=== PATIENT | female | born 1955 | race Caucasian/White ===

== ENCOUNTER 2020-05-19 13:14 | Outpatient (CLI) | payer OTHER | END 2020-05-19 13:15 | disposition home or self-care (01) | LOC: COV 13:14 | PROVIDERS: ATTEND Family Medicine | DX: R05 Cough (principal); M79.10 Myalgia, unspecified site; J34.89 Other specified disorders of nose and nasal sinuses; Z20.828 Contact with and (suspected) exposure to other viral communicable diseases ==

== ENCOUNTER 2020-12-13 07:00 | Outpatient (CLI) | payer OTHER ==
--- NOTE | 2020-12-13 10:56 | XRAY Report ---
PROCEDURE: Knee 3 View RT INDICATIONS: RIGHT KNEE PAIN TECHNIQUE: 3 views of the right knee(s) were acquired. COMPARISON: None. FINDINGS: Bones: No fractures or dislocations. No suspicious bony lesions. There is moderate medial, patello femoral and lateral compartment narrowing. Periarticular osteophytes are present. No erosions. There is lateral subluxation of the patella. Soft tissues: Minimal joint effusion. No suspicious soft tissue calcifications. IMPRESSION: Tricompartmental arthritic change as above. Reviewed by: Anais Vee MD on 12/13/2020 10:55 AM PDT Approved by: Anais Vee MD on 12/13/2020 10:55 AM PDT Station ID: [id number]
== END 2020-12-13 23:59 | disposition home or self-care (01) ==
LOC: DI.S 07:00
PROVIDERS: ATTEND Physician Assistant
DX: M17.11 Unilateral primary osteoarthritis, right knee (principal)

== ENCOUNTER 2021-03-01 13:05 | Outpatient (CLI) | payer MEDICARE, OTHER ==
--- NOTE | 2021-03-01 15:18 | XRAY Report ---
PROCEDURE: Knee 4 View RT INDICATIONS: OSTEOARTHRITIS, RIGHT KNEE TECHNIQUE: 4 views of the right knee and one view of the left knee. COMPARISON: None. FINDINGS: Bones: No fractures or dislocations. No suspicious bony lesions. There is moderate tricompartment periarticular osteophyte formation. There is severe right knee lateral compartment narrowing. Soft tissues: No joint effusion. Chondrocalcinosis within the left knee lateral compartment. IMPRESSION: 1. Osteoarthritis 2. Lateral compartment narrowing involving the right knee. 3. Left knee chondrocalcinosis. Reviewed by: Kavon Sims MD on 03/01/2021 3:16 PM PDT Approved by: Kavon Sims MD on 03/01/2021 3:16 PM PDT Station ID: [id number]
== END 2021-03-01 23:59 | disposition home or self-care (01) ==
LOC: DI.N 13:05
PROVIDERS: ATTEND Orthopaedic Surgery
DX: M17.11 Unilateral primary osteoarthritis, right knee (principal); M11.262 Other chondrocalcinosis, left knee

== ENCOUNTER 2021-03-22 14:54 | Outpatient (CLI) | payer OTHER ==
--- NOTE | 2021-03-23 13:24 | Mammography Report ---
BILATERAL DIGITAL SCREENING MAMMOGRAM 3D/2D: 03/22/2021 CLINICAL: Routine screening. Comparison is made to exams dated: 11/23/2015 mammogram and 12/07/2008 mammogram - [facility]. There are scattered fibroglandular elements in both breasts. No significant masses, calcifications, or other findings are seen in either breast. There has been no significant interval change. IMPRESSION: NEGATIVE There is no mammographic evidence of malignancy. A 1 year screening mammogram is recommended. This exam was interpreted at Station ID: [id number]. NOTE: For mammograms, a report in lay terms will be sent to the patient. Approximately 15% of breast malignancies will not be visualized mammographically. In the management of a palpable breast mass, a negative mammogram must not discourage biopsy of a clinically suspicious lesion. Electronically Signed By: Julio Aldana M.D. ar/penrad:03/22/2021 16:09:00 ACR BI-RADS Category 1: Negative [id number] PARENCHYMAL PATTERN: (A) - The breast(s) demonstrate(s) scattered fibroglandular densities. BI-RADS CATEGORY: (1) - 1 RECOMMENDATION: (ANNUAL) - Recommend routine annual screening mammography. [id number] 1 year screening LATERALITY: (B)
== END 2021-03-22 14:55 | disposition home or self-care (01) ==
LOC: DI.S 14:54
PROVIDERS: ATTEND Registered Nurse
DX: Z12.31 Encounter for screening mammogram for malignant neoplasm of breast (principal)

== ENCOUNTER 2021-04-14 08:05 | Outpatient (CLI) | payer OTHER ==
[2021-04-14 14:34] LABS: PARTIAL THROMBOPLASTIN TIME 31.9 secs (24.9-33.3)
[2021-04-14 14:37] LABS: BASOPHILS % (AUTO) 0.7 %; EOSINOPHILS # (AUTO) 0.1 10^3/uL (0.0-0.7); EOSINOPHILS % (AUTO) 3.4 %; HCT - HEMATOCRIT 39.4 % (37.0-47.0); HGB - HEMOGLOBIN 12.7 g/dL (12.0-16.0); LYMPHOCYTES # (AUTO) 0.7 10^3/uL (1.5-3.5); LYMPHOCYTES % (AUTO) 21.9 %; MEAN CORPUSCULAR HEMOGLOBIN 28.8 pg (27.0-31.0); MEAN CORPUSCULAR HGB CONC 32.2 g/dL (32.0-36.0); MEAN CORPUSCULAR VOLUME 89.3 fL (81.0-99.0); MONOCYTES # (AUTO) 0.3 10^3/uL (0.0-1.0); MONOCYTES % (AUTO) 9.4 %; NEUTROPHILS # (AUTO) 1.9 10^3/uL (1.5-6.6); NEUTROPHILS % (AUTO) 64.6 %; PLT - PLATELET COUNT 202 10^3/uL (130-450); RED BLOOD COUNT 4.41 10^6/uL (4.20-5.40); RED CELL DISTRIBUTION WIDTH 14.2 % (12.0-15.0)
[2021-04-14 14:47] LABS: PT - PROTHROMBIN TIME 11.6 secs (9.9-12.6)
[2021-04-14 15:30] LABS: THYROID STIMULATING HORMONE 3.42 uIU/mL (0.34-5.60)
[2021-04-14 15:34] LABS: ALBUMIN 4.2 g/dL (3.2-5.5); ALBUMIN/GLOBULIN RATIO 1.7 (1.0-2.2); ALKALINE PHOSPHATASE 61 IU/L (42-121); ALT ALANINE AMINOTRANSFERASE 15 IU/L (10-60); AST ASPARTATE AMINOTRANSFERASE 13 IU/L (10-42); BILIRUBIN,TOTAL 0.5 mg/dL (0.2-1.0); BUN - BLOOD UREA NITROGEN 19 mg/dL (6-20); CARBON DIOXIDE - CO2 27 mmol/L (21-32); CHLORIDE 105 mmol/L (101-111); CHOL/HDL RATIO 2.7 (<4.4); CHOLESTEROL 231 mg/dL; CREATININE 0.6 mg/dL (0.4-1.0); GFR - MDRD 100 (>89); GLUCOSE 103 mg/dL (70-100); HDL CHOLESTEROL 85 mg/dL; LDL CHOLESTEROL,CALCULATED 138 mg/dL; LDL/HDL RATIO 1.6 (<4.4); SODIUM 139 mmol/L (135-145); TOTAL PROTEIN 6.7 g/dL (6.7-8.2); TRIGLYCERIDES 42 mg/dL; VLDL CHOLESTEROL 8 mg/dL
== END 2021-04-14 08:06 | disposition home or self-care (01) ==
LOC: LAB.S 08:05
PROVIDERS: ATTEND Physician Assistant
DX: Z00.00 Encounter for general adult medical examination without abnormal findings (principal); I10 Essential (primary) hypertension; Z79.899 Other long term (current) drug therapy
CPT/HCPCS: 36415; 80053; 80061; 83721; 84443; 85025; 85610; 85730

== ENCOUNTER 2021-05-04 06:23 | Day surgery (SDC) | payer OTHER, MEDICARE ==
[~2021-05-04 06:23] MED LIST: ACETAMINOPHEN 500 MG TABLET PO ONE; CELECOXIB 100 MG CAPSULE PO ONE; DEXAMETHASONE 10 MG/ML VIAL ONE; ceFAZolin 2 GM/50 ML 2 GM/50 ML BAG IV ONE
[2021-05-04] MEDS ORDERED: LACTATED RINGERS 1,000 ML IV ONE ×2 (06:39→10:46)
[2021-05-04] MEDS ORDERED: fentaNYL 100 MCG/2 ML VIAL ONE ×2 (06:52→09:40)
[2021-05-04] MEDS ORDERED: MIDAZOLAM 2 MG/2 ML VIAL ONE ×2 (06:52)
[2021-05-04] MEDS ORDERED: PROPOFOL 1000 MG/100 ML 1,000 MG/100 ML BOTTLE IV ONE (06:53)
[2021-05-04] MEDS ORDERED: LIDOCAINE-MPF 2% 5 ML VIAL ONE (06:53)
--- NOTE | 2021-05-04 07:04 | ANESTHESIA ---
Pre-Anesthesia VS, & Labs - Diagnosis R Knee OA - Procedure R TKA Vital Signs: Temp Pulse Resp BP Pulse Ox 36.4 C L 75 16 157/94 H 100 05/04/21 06:39 05/04/21 06:39 05/04/21 06:39 05/04/21 06:39 05/04/21 06:39 Height: 5 ft 5 in Weight (kg): 106.2 kg Body Mass Index: 38.9 BMI Classification: Obese - NPO >8 hours - Is Patient ?: No Home Medications and Allergies Home Medications: Ambulatory Orders Ascorbic Acid [Vitamin C] 1,000 mg PO DAILY 04/26/21 Cholecalciferol [Vitamin D3] 5,000 unit PO DAILY 04/26/21 Cyanocobalamin (Vitamin B-12) [Vitamin B-12] 3,000 mcg PO DAILY 04/26/21 Ibuprofen [Motrin] 600 mg PO Q6H PRN 04/26/21 Losartan Potassium 25 mg PO DAILY 04/26/21 Ascorbic Acid [Vitamin C] 1,000 mg PO DAILY 04/26/21 Cholecalciferol [Vitamin D3] 5,000 unit PO DAILY 04/26/21 Cyanocobalamin (Vitamin B-12) [Vitamin B-12] 3,000 mcg PO DAILY 04/26/21 Ibuprofen [Motrin] 600 mg PO Q6H PRN 04/26/21 Losartan Potassium 25 mg PO DAILY 04/26/21 Allergies/Adverse Reactions: Allergies Allergy/AdvReac Type Severity Reaction Status Date / Time codeine AdvReac Nausea Verified 04/26/21 12:44 Anes History & Medical History - Anesthetic History Anesthesia Complications: reports: No previous complications Family history of Anesthesia Complications: Denies Family history of Malignant Hyperthermia: Denies - Medical History Cardiovascular: reports: Hypertension, High cholesterol Pulmonary: reports: None Gastrointestinal: reports: None Urinary: reports: None Musculoskeletal: reports: Osteoarthritis Endocrine/Autoimmune: reports: None Skin: reports: Rosacea - Surgical History Gynecologic: reports: Oophrectomy Exam General: Alert, Oriented x3, Cooperative Dental: WNL Mouth Openin Fingerbreadth Neck Mobility: Normal Mallampati classification: II Thyromental Distance: 4-6 cm Respiratory: Lungs clear Cardiovascular: Regular rate Plan Anesthesia Type: General (GETA as back up, SAB primary, ACB for post-op pain), Spinal, Adductor Block Regional Block: Per Surgeon's request for Post Op pain control Consent for Procedure(s) Verified and Reviewed: Yes Code Status: Attempt Resuscitation ASA classification: 2-Mild systemic disease Is this case an emergency?: No
[2021-05-04] MEDS ORDERED: HYDROmorphone 0.5 MG/0.5 ML SYRINGE IVP PRN (07:05)
[2021-05-04] MEDS ORDERED: ePHEDrine 50 MG/ML VIAL IVP PRN (07:05)
[2021-05-04] MEDS ORDERED: NALOXONE 0.4 MG/ML VIAL IVP PRN (07:05)
[2021-05-04] MEDS ORDERED: ONDANSETRON 4 MG/2 ML VIAL IVP PRN (07:05)
[2021-05-04] MEDS ORDERED: fentaNYL 100 MCG/2 ML VIAL IVP PRN (07:05)
[2021-05-04] MEDS ORDERED: METOCLOPRAMIDE 10 MG/2 ML VIAL IVP PRN (07:05)
[2021-05-04] MEDS ORDERED: ATROPINE ABBOJECT 1 MG/10 ML SYRINGE IVP PRN (07:05)
[2021-05-04] MEDS ORDERED: MORPHINE 2 MG/ML CARPUJECT IVP PRN (07:05)
[2021-05-04] MEDS ORDERED: ROPIVACAINE 0.5% PF 20 ML AMPULE ONE (07:10)
[2021-05-04] MEDS ORDERED: BUPIVACAINE 0.5% PF 10 ML VIAL ONE (07:10)
[2021-05-04] MEDS ORDERED: SODIUM CHLORIDE FLUSH 0.9% 10 ML SYRINGE IVP PRN (07:13)
[2021-05-04] MEDS ORDERED: DOCUSATE SODIUM 100 MG CAPSULE PO PRN (07:13)
[2021-05-04] MEDS ORDERED: TRANEXAMIC ACID 1,000 MG/10 ML VIAL ONE ×2 (07:42→09:55)
[2021-05-04] MEDS ORDERED: LACTATED RINGERS 1,000 ML IV SCH (08:00)
[2021-05-04] MEDS ORDERED: BUPIVACAINE 0.25% PF 30 ML VIAL ONE (08:07)
[2021-05-04] MEDS ORDERED: VANCOMYCIN 1 GM VIAL ONE (08:07)
[2021-05-04] MEDS ORDERED: BUPIVACAINE 0.25% PF 30 ML VIAL SUBQ ONE (08:26)
[2021-05-04] MEDS ORDERED: VANCOMYCIN 1 GM VIAL MC ONE (08:46)
[2021-05-04] MEDS ORDERED: PHENYLEPHRINE 10 MG/ML VIAL ONE (08:56)
[2021-05-04] MEDS ORDERED: PROPOFOL 200 MG/20 ML VIAL IVP ONE ×2 (09:03→09:36)
--- NOTE | 2021-05-04 10:16 | OPERATIVE REPORT ---
Operative Report - General Procedure Date: 05/04/21 Planned Procedure: Right total knee replacement Pre-Op Diagnosis: Osteoarthritis right knee Procedure Performed: Right total knee replacement: [employer] journey 2 bicruciate stabilized knee: #5 femoral component, #4 tibial component, 26 mm biconvex patellar component, 11 mm tibial bearing, all components cemented Post Op Diagnosis: Same as preoperative diagnosis - Procedure Note Primary Surgeon: Ariel Paige MD Secondary Surgeon: Marv CERON, Jonn CERON Anesthesia Provider: Myles Lange CRNA Anesthesia Technique: Regional block, Spinal Estimated Blood Loss (mL): 200 Indications: This is a 65-year-old woman with symptomatic valgus osteoarthritis right knee, unable to achieve satisfactory pain relief and activity level with nonoperative treatment.She has valgus deformity with loss of articular cartilage to lateral compartment noted on radiographs and also to patellofemoral joint with osteophytes Findings: There is complete loss of articular cartilage to the lateral compartment and most of the patellofemoral joint, osteophytes off the medial compartment with partial articular cartilage loss. There is nonspecific synovitis. Cruciate ligaments and menisci were intact Complications: None - Other Other Information/Narrative: The patient was brought to the operating room and was placed in a supine position. She was given a adductor canal block by anesthesia. A pneumatic tourniquet was applied to the proximal right thigh over cast padding. This was a conical shaped Barbara thigh tourniquet that was sterile. An Rojas adjustable leg montero was placed on the operating room table to facilitate knee flexion of the right knee during surgery. A timeout procedure was performed by the entire operating room team and all were in agreement. A midline longitudinal incision was made with the knee in flexion. A medial parapatellar arthrotomy was made. The anterior horns of medial and lateral menisci were released and part of patellar fat pad was excised. The knee was flexed and the patella was dislocated laterally. A drill hole was made in the intramedullary notch with a 9.5 mm drill. Osteophytes about the proximal tibia and femur had been removed with a rongeur. The distal femoral cutting guide was aligned parallel to the posterior condyles. The intramedullary oscar and guide was advanced and the distal femoral guide was stabilized with half pins. The distal 5 degrees valgus cut was made through the distal femoral guide. Next the extra medullary tibial guide was assembled and applied and aligned to the mechanical axis in both sagittal and coronal planes. Tibial referencing was done to allow 3 mm of bone from the most affected side and 6 mm from the least affected side. The tibial guide was stabilized with half pins. Retractors were placed medially and laterally to protect the collateral ligaments and a retractor was placed directly against the posterior bone to sublux the tibia anteriorly. A [employer] precision 8 saw was used to make the tibial proximal cut. The tibial block was removed as a single piece and the menisci were removed as well. The extension gap was assessed with a extension block spacer using a 10 mm spacer and this was found to fit well as well as the 9 mm spacer block with the knee in 90 degrees of flexion. Next the femoral positioning guide was applied and aligned to the epicondylar axis and [place] line. This was secured in place with approximately 4 degrees of external rotation. The size of the femur at the anterior lateral trochlea was a #4. Drill holes were made in the 5 and 1 #4 cutting block was inserted and secured. The 5 cuts were made to the captured block using oscillating saw. The flexion gap was assessed with the 10 mm spacer and was found to fit well. The patella was then prepared. A 26 mm biconvex patellar reamer was used. The tibial trial #4 was then applied to the tibia and aligned to the mechanical axis.The notch was removed with reamer and box osteotome. The drill and punch fin was utilizedFor the proximal tibia. Trial reduction was performed with the femoral and tibial components in place. Notch resection was then through the trial component. Pulsatile lavage was performed. A tourniquet was applied during the cementing process. The components were inserted sequentially: Tibia, femur and lastly patellar component. Drill holes were made in medial lateral femoral condyles to the trial. Excess cement was removed and the knee was placed in extension during the hardening. Dilute Betadine irrigation was performed. The knee had full range of motion, good patellar tracking. There was good stability of the knee in full extension mid flexion and 90 degrees of flexion. There was good alignment of the right knee. The tourniquet had been deflated and had been in place for 38 minutes. Hemostasis was achieved with electrocautery. Vancomycin powder 2 g were inserted in the arthrotomy prior to deep closure. The deep closure was performed with #1 Ethibond proximal and distal to the patella with the knee in 30 degrees of flexion. #1 stratofix suture was then used to close the arthrotomy incision. 2-0 Stratofix was used to close the subcutaneous tissue. 3-0 Monocryl was used to do a subcuticular skin closure. Dermabond was applied to the skin incision. After the Dermabond had hardened, a silver impregnated dressing was applied. She tolerated the procedure well and received 2 g of Ancef intravenously and 2 g of tranexamic acid. A clinical physician assistant was utilized during the procedure and was found to be necessary component to help with exposure, protection of vital structures and closure. Second application assistant, Marv Walker PA-C also was available to provide retraction exposure.
[2021-05-04] MEDS ORDERED: ONDANSETRON 4 MG/2 ML VIAL ONE (10:55)
--- NOTE | 2021-05-04 11:26 | CONSULTATION NOTE ---
Referring Provider Name of Referring Provider:: Dr. Ariel Paige. Consult Date: 05/04/21 Chief Complaint - Chief Complaint Chief Complaint: Right knee pain History of Present Illness - Admitted From Admitted From:: Home - History Obtained From Records Reviewed: Yes History obtained from: Patient, Orthopedic Surgeon, EMR - History of Present Illness HPI Comment/Other: This is a 65-year-old female with a past medical history significant for hypertension and osteoarthritis who presents today for an elective right total knee arthroplasty for osteoarthritis that has failed conservative therapy. Medicine was consulted postoperatively to help assist with the patient's hypertension. The patient currently reports feeling well. She does complain of a burning sensation in her right knee but states her pain overall is controlled. She is able to move her toes and denies any loss of sensation. Reports no chest pain, dyspnea. She does feel thirsty at this time. We did discuss goals of care and she would like to be a full code. 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 Both of them are . Living arrangement: At home Social History Notes: She denies smoking and reports rare alcohol use. Meds/Allgy - Home Medications Home Medications: Ambulatory Orders Medication Instructions Recorded Confirmed Ascorbic Acid [Vitamin C] 1,000 mg PO DAILY 04/26/21 05/03/21 Cholecalciferol [Vitamin D3] 5,000 unit PO DAILY 04/26/21 05/03/21 Cyanocobalamin (Vitamin B-12) 3,000 mcg PO DAILY 04/26/21 05/03/21 [Vitamin B-12] Ibuprofen [Motrin] 600 mg PO Q6H PRN 04/26/21 05/03/21 Losartan Potassium 25 mg PO DAILY 04/26/21 05/04/21 - Allergies Allergies/Adverse Reactions: Allergies Allergy/AdvReac Type Severity Reaction Status Date / Time codeine AdvReac Nausea Verified 04/26/21 12:44 Review of Systems - Constitutional Constitutional: denies: Fever, Chills - Cardiovascular Cariovascular: denies: Chest pain, Exertional dyspnea, Decr. exercise tolerance - Respiratory Respiratory: denies: Cough, SOB at rest, SOB with exertion - Gastrointestinal Gastrointestinal: denies: Abdominal pain, Nausea, Vomiting - Musculoskeletal Musculoskeletal: reports: Stiffness, Limited range of motion, Joint pain - Neurological Neurological: denies: Focal weakness - All Other Systems All Other Systems: reports: Reviewed and negative Exam - Vital Signs Reviewed Vital Signs: Yes Vital Signs: Vital Signs x48h Temp Pulse Resp BP Pulse Ox 05/04/21 11:16 36.5 C 73 16 126/81 H 96 05/04/21 11:06 36.5 C 73 15 129/73 95 05/04/21 10:56 37.1 C 75 12 129/73 96 05/04/21 10:52 37.1 C 77 13 130/79 96 05/04/21 10:46 36.4 C L 82 14 119/74 100 05/04/21 10:38 36.4 C L 85 14 127/75 96 05/04/21 06:39 36.4 C L 75 16 157/94 H 100 - Physical Exam General Appearance: positive: No acute distress, Alert Eyes Bilateral: positive: Normal inspection, Conjunctivae nml ENT: positive: ENT inspection nml Neck: positive: Nml inspection Respiratory: positive: No respiratory distress. negative: Wheezes, Rales Cardiovascular: positive: Regular rate & rhythm. negative: Tachycardia Abdomen: positive: Non-tender, No distention. negative: Tenderness Skin: positive: Warm, Dry Extremities: positive: No pedal edema, Other (Dressing is in place over the right knee. Less than 2-second capillary refill in the right lower extremity. Sensation is intact. She is able to move her toes.) Neurologic/Psychiatric: negative: Disoriented to person, Disoriented to place Conclusion/Plan - Diagnosis Diagnosis: 1) Hypertension. 2) Status post right total knee replacement - Plan Plan: Her blood pressure is currently well controlled and we will continue her home losartan during this hospitalization. Agree with current pain regimen including Celebrex, Dilaudid, and oxycodone as needed. We will defer DVT prophylaxis to orthopedic surgery.
--- NOTE | 2021-05-04 11:39 | ANESTHESIA POST OP EVALUATION ---
Anesthesia Post Eval - Post Anesthesia Eval Vitals: Last Vital Signs Temp 36.3 C L 05/04/21 11:35 Pulse 72 05/04/21 11:35 Resp 16 05/04/21 11:35 BP 106/52 L 05/04/21 11:35 Pulse Ox 95 05/04/21 11:35 CV Function Including HR & BP: Stable Pain Control: Satisfactory Nausea & Vomiting: Negative Mental Status: Baseline Respiratory Status: Airway Patent Hydration Status: Satisfactory Anesthesia Complications: None
[2021-05-04] MEDS: HYDROmorphone 1 MG/ML CARPUJECT IVP PRN ×3 (12:30→17:02)
[2021-05-04] MEDS: NS W/20 MEQ KCL 1,000 ML IV SCH ×2 (12:33→21:00)
[2021-05-04] MEDS: ethyl alcohoL 62% SWAB AMPULE NAS SCH ×2 (12:34→20:55)
[2021-05-04] MEDS: ASPIRIN EC 81 MG TABLET PO SCH ×2 (12:34→20:55)
[2021-05-04] MEDS: CELECOXIB 100 MG CAPSULE PO SCH ×2 (12:34→20:55)
[2021-05-04] MEDS: ACETAMINOPHEN 500 MG TABLET PO SCH ×2 (12:35→17:01)
[2021-05-04] MEDS: SODIUM CHLORIDE FLUSH 0.9% 10 ML SYRINGE IVP SCH ×2 (12:35→16:43)
--- NOTE | 2021-05-04 12:47 | XRAY Report ---
PROCEDURE: Knee 2 View RT INDICATIONS: POST-OP TECHNIQUE: 2 views of the right knee(s) were acquired. COMPARISON: None. FINDINGS: Expected postoperative appearance of right knee arthroplasty. Hardware appears intact. There is expec jagjit alignment. Postsurgical soft tissue sequela. IMPRESSION: Expected postoperative appearance Reviewed by: Octaviano Hammond MD on 05/04/2021 12:46 PM PDT Approved by: Octaviano Hammond MD on 05/04/2021 12:46 PM PDT Station ID: [id number]
[2021-05-04] MEDS: oxyCODONE 5 MG TABLET PO PRN ×2 (13:38→20:55)
[2021-05-04] MEDS: ceFAZolin 2 GM/50 ML 2 GM/50 ML BAG IV SCH ×2 (13:39→21:06)
[2021-05-04] MEDS: ONDANSETRON 4 MG/2 ML VIAL IVP PRN ×2 (13:39→19:26)
[2021-05-05] MEDS: ACETAMINOPHEN 500 MG TABLET PO SCH ×3 (01:14→14:25)
[2021-05-05] MEDS: oxyCODONE 5 MG TABLET PO PRN ×2 (03:07→08:45)
[2021-05-05] MEDS: SODIUM CHLORIDE FLUSH 0.9% 10 ML SYRINGE IVP SCH ×2 (03:08→08:46)
[2021-05-05] MEDS: NS W/20 MEQ KCL 1,000 ML IV SCH (07:47)
--- NOTE | 2021-05-05 07:57 | PROVIDER PROGRESS NOTE ---
Subjective - General Procedure Date: 05/04/21 Post Op Days: 1 Procedure Performed: Right TKA - Review of Systems Wound/Incisions: positive: Dressing dry and intact General: negative: Fever, Chills Gastrointestinal: negative: Nausea (Patient is a 65-year-old female with a history of essential hypertension and high BMI who is postop day 1 right TKA) Musculoskeletal: positive: Joint pain Psychiatric: positive: No symptoms All Other Systems: positive: Reviewed and negative Objective - Patient Data Reviewed Vital Signs: Yes Vital Signs: Vital Signs x48h Temp Pulse Resp BP Pulse Ox 05/05/21 00:51 36.7 C 70 18 113/51 L 96 Weight: Weight 05/03/21 05/04/21 05/05/21 23:59 23:59 23:59 Weight (kg) 105.554 kg Intake & Output: Intake and Output Totals x24h 05/03/21 05/04/21 05/05/21 23:59 23:59 23:59 Intake Total 1495 1000 Output Total 1105 1200 Balance 390 -200 - Imaging Results Radiology Imaging: positive: EMP read indepedently (Expected postop changes for right TKA with no apparent hardware loosening and good anatomical alignment no fractures dislocations or other osseous abnormalities noted.) - Current Medications Current Medications: Current Medications Generic Name Dose Route Start Last Admin Trade Name Freq PRN Reason Stop Dose Admin Acetaminophen 1,000 mg 05/04/21 12:00 05/05/21 07:04 Acetaminophen 500 Mg Tablet PO 1,000 mg Q6HR SAWYER Administration Alcohol 1 amp 05/04/21 09:00 05/04/21 20:55 Ethyl Alcohol 62% Swab Ampule FRANKI 1 amp BID SAWYER Administration Aspirin 81 mg 05/04/21 09:00 05/04/21 20:55 Aspirin Ec 81 Mg Tablet PO 81 mg BID SAWYER Administration Celecoxib 200 mg 05/04/21 09:00 05/04/21 20:55 Celecoxib 100 Mg Capsule PO 200 mg BID SAWYER Administration Docusate Sodium 100 mg 05/04/21 07:13 05/04/21 20:56 Docusate Sodium 100 Mg Capsule PO 100 mg BID PRN Administration Constipation Hydromorphone HCl 1 mg 05/04/21 07:13 05/04/21 17:02 Hydromorphone 1 Mg/Ml Carpuject IVP 1 mg Q2HR PRN Administration Breakthrough Pain Potassium Chloride/Sodium Chloride 1,000 mls @ 100 mls/hr 05/04/21 08:00 05/05/21 07:47 Normal Saline 0.9% W/20 Meq Kcl IV 100 mls/hr .Q10H SAWYER Administration Ondansetron HCl 4 mg 05/04/21 07:13 05/04/21 19:26 Ondansetron 4 Mg/2 Ml Vial IVP 4 mg Q6HR PRN Administration Nausea / Vomiting Oxycodone HCl 5 mg 05/04/21 07:13 05/05/21 03:07 Oxycodone 5 Mg Tablet PO 5 mg Q6HR PRN Administration PAIN Sodium Chloride 10 ml 05/04/21 09:00 05/05/21 03:08 Sodium Chloride Flush 0.9% 10 Ml Syringe IVP Not Given 0100,0900,1700 SAWYER ABX Reporting Has patient been on IV antibiotics over the past 48 hours?: Yes Impression/Plan - Problem List Problem List: Patient is a 65-year-old female with a history including essential hypertension and high BMI who is postop day 1 right TKA performed by Dr Ariel Paige at [facility] on 05/04/2021. Patient is being comanaged by the hospitalist for hypertension medications. Patient reports increasing pain over the last few hours that is most likely the regional block wearing out, otherwise pain has well controlled. Patient has gotten up to a chair, she has gross neurological function intact in the right lower limb her dressing is dry and intact and she has no signs or symptoms of infection. Pending successful completion of her physical therapy sessions today she is cleared from orthopedic Surgery To be discharged home today. Patient will be following up next week in our [facility].Patient is discharged weightbearing as tolerated in front wheeled walker, her sister is going to bring in a walker from home she does not need to be discharged with a walker.
--- NOTE | 2021-05-05 08:07 | Discharge Plan ---
Discharge Plan Problem Reviewed?: Yes Disposition: 01 Home, Self Care Condition: Good Diet: Regular Activity Restrictions: Wt Bearing as Tolerated Shower Restrictions: Yes (Patient will be cleared to shower after first postop appointment) Driving Restrictions: Yes (Do not operate a motor vehicle until cleared by surgeon) Assistance Devices: Walker Weight Bearing: Partial Weight Plan of Treatment: Patient is discharged home weightbearing as tolerated.Patient is encouraged to ambulate with front wheeled walker as much as she can tolerate. For medications patient is to take Scheduled 650 mg of Tylenol every 4 hours up to 5 times a day in a 24-hour period. Patient can take 2 tablets of Aleve scheduled in a.m. and 2 tablets of Aleve scheduled in the p.m. Patient can use 1 tablet of 50 mg tramadol for breakthrough pain every 6 hours. Patient continues breakthrough pain after tramadol, patient can take 1 tablet 5 mg tablet of oxycodone every 6 hours as needed. Patient is to take 1 tablet 81 mg of baby aspirin in a.m. 1 in the PM for 6 weeks for blood clot prevention. Additional Instructions or Follow Up instructions: Patient is discharged home weightbearing as tolerated.Patient is encouraged to ambulate with front wheeled walker as much as she can tolerate. For medications patient is to take Scheduled 650 mg of Tylenol every 4 hours up to 5 times a day in a 24-hour period. Patient can take 2 tablets of Aleve scheduled in a.m. and 2 tablets of Aleve scheduled in the p.m. Patient can use 1 tablet of 50 mg tramadol for breakthrough pain every 6 hours. Patient continues breakthrough pain after tramadol, patient can take 1 tablet 5 mg tablet of oxycodone every 6 hours as needed. Patient is to take 1 tablet 81 mg of baby aspirin in a.m. 1 in the PM for 6 weeks for blood clot prevention. No Smoking: If you smoke, Please STOP! Call for help. Follow-up with: Socorro Servin ARNP [Primary Care Provider] -
[2021-05-05] MEDS: ethyl alcohoL 62% SWAB AMPULE NAS SCH (08:46)
[2021-05-05] MEDS: ASPIRIN EC 81 MG TABLET PO SCH (08:46)
[2021-05-05] MEDS: CELECOXIB 100 MG CAPSULE PO SCH (08:46)
[2021-05-05 12:13] VITALS: BP 119/73
[2021-05-05] MEDS: HYDROmorphone 1 MG/ML CARPUJECT IVP PRN (12:23)
[2021-05-05] MEDS: ONDANSETRON 4 MG/2 ML VIAL IVP PRN (12:23)
== END 2021-05-05 15:48 | disposition home or self-care (01) ==
LOC: SDS 06:23 → MS2 11:23 → SDS 05-05 15:48
PROVIDERS: ATTEND Orthopaedic Surgery
DX: M17.11 Unilateral primary osteoarthritis, right knee (principal); E66.9 Obesity, unspecified; Z68.38 Body mass index [BMI] 38.0-38.9, adult; I10 Essential (primary) hypertension; E78.00 Pure hypercholesterolemia, unspecified; F40.240 Claustrophobia; H54.7 Unspecified visual loss; Z79.899 Other long term (current) drug therapy
CPT/HCPCS: 27447; 73560; 97162; 97165; 97530; A9270; C1713; J0690; J1170; J3370; J7120

== ENCOUNTER 2021-06-21 15:48 | Outpatient (CLI) | payer OTHER, MEDICARE ==
--- NOTE | 2021-06-21 10:54 | XRAY Report ---
PROCEDURE: Knee 4 View RT INDICATIONS: TOTAL R KNEE ARTHROPLASTY TECHNIQUE: 4 views of the right knee(s) were acquired. COMPARISON: 05/04/2021. FINDINGS: Bones: Patient is status post right total knee arthroplasty with anatomic right knee alignment. No g ross hardware loosening or failure. No patellar subluxation. No fractures or dislocations. No suspic ious bony lesions. Soft tissues: No joint effusion. No suspicious soft tissue calcifications. IMPRESSION: Anatomic right knee alignment. No evidence of hardware complication. No fracture or disl ocation. Reviewed by: Guicho Gibson MD on 06/21/2021 10:53 AM PDT Approved by: Guihco Gibson MD on 06/21/2021 10:53 AM PDT Station ID: [id number]
== END 2021-06-21 15:50 ==
LOC: DI.N 15:48
PROVIDERS: ATTEND Orthopaedic Surgery
DX: Z96.651 Presence of right artificial knee joint (principal)

== ENCOUNTER 2022-04-24 08:00 | Outpatient (CLI) | payer OTHER, MEDICARE ==
--- NOTE | 2022-04-24 11:32 | XRAY Report ---
PROCEDURE: Knee 4 View RT INDICATIONS: RIGHT TKA TECHNIQUE: 4 views of the right knee(s) were acquired. COMPARISON: None. FINDINGS: Bones: Postoperative changes of total right knee arthroplasty Sharmila. No pericardial hardware lucen cy or fracture. The left knee has tricompartmental degenerative changes and chondrocalcinosis. No fra ctures or dislocations. No suspicious bony lesions. Soft tissues: No joint effusion. No suspicious soft tissue calcifications. IMPRESSION: 1. Total right knee arthroplasty without complication. 2. Degenerative changes of the left knee consistent with osteoarthritis. Reviewed by: Munir Hernandes on 04/24/2022 11:30 AM PDT Approved by: Munir Hernandes on 04/24/2022 11:30 AM PDT Station ID: [id number]
== END 2022-04-24 23:59 | disposition home or self-care (01) ==
LOC: DI.WOS 08:00
PROVIDERS: ATTEND Orthopaedic Surgery
DX: Z09 Encounter for follow-up examination after completed treatment for conditions other than malignant neoplasm (principal); Z96.651 Presence of right artificial knee joint

== ENCOUNTER 2023-06-19 08:18 | Outpatient (CLI) | payer OTHER, MEDICARE ==
[2023-06-19 14:24] LABS: BASOPHILS % (AUTO) 0.5 %; EOSINOPHILS # (AUTO) 0.1 10^3/uL (0.0-0.7); EOSINOPHILS % (AUTO) 3.3 %; HCT - HEMATOCRIT 37.9 % (37.0-47.0); LYMPHOCYTES # (AUTO) 0.7 10^3/uL (1.5-3.5); LYMPHOCYTES % (AUTO) 17.1 %; MEAN CORPUSCULAR HEMOGLOBIN 28.1 pg (27.0-31.0); MEAN CORPUSCULAR HGB CONC 31.7 g/dL (32.0-36.0); MEAN CORPUSCULAR VOLUME 88.8 fL (81.0-99.0); MEAN PLATELET VOLUME 10.1 fL (7.9-10.8); MONOCYTES # (AUTO) 0.4 10^3/uL (0.0-1.0); MONOCYTES % (AUTO) 8.6 %; NEUTROPHILS % (AUTO) 70.3 %; PLT - PLATELET COUNT 214 10^3/uL (130-450); RED BLOOD COUNT 4.27 10^6/uL (4.20-5.40); RED CELL DISTRIBUTION WIDTH 14.7 % (12.0-15.0); WHITE BLOOD COUNT 4.2 x10^3/uL (4.8-10.8)
[2023-06-19 14:51] LABS: ALBUMIN 4.1 g/dL (3.2-5.5); ALBUMIN/GLOBULIN RATIO 1.6 (1.0-2.2); ALKALINE PHOSPHATASE 80 IU/L (42-121); ALT ALANINE AMINOTRANSFERASE 13 IU/L (10-60); AST ASPARTATE AMINOTRANSFERASE 12 IU/L (10-42); BILIRUBIN,TOTAL 0.5 mg/dL (0.2-1.0); BUN - BLOOD UREA NITROGEN 23 mg/dL (6-20); CALCIUM 9.4 mg/dL (8.5-10.3); CARBON DIOXIDE - CO2 28 mmol/L (21-32); CHLORIDE 109 mmol/L (101-111); CHOL/HDL RATIO 3.3 (<4.4); CHOLESTEROL 225 mg/dL; CREATININE 0.6 mg/dL (0.6-1.3); GFR - MDRD 99 (>89); GLUCOSE 111 mg/dL (74-104); HDL CHOLESTEROL 68 mg/dL; LDL CHOLESTEROL,CALCULATED 133 mg/dL; POTASSIUM 3.9 mmol/L (3.5-4.5); SODIUM 142 mmol/L (135-145); TOTAL PROTEIN 6.7 g/dL (6.4-8.9); TRIGLYCERIDES 121 mg/dL (48-352); VLDL CHOLESTEROL 24 mg/dL
[2023-06-19 14:58] LABS: THYROID STIMULATING HORMONE 1.19 uIU/mL (0.34-5.60)
== END 2023-06-19 08:19 | disposition home or self-care (01) ==
LOC: LAB.S 08:18
PROVIDERS: ATTEND Registered Nurse
DX: I10 Essential (primary) hypertension (principal); Z48.89 Encounter for other specified surgical aftercare; Z79.899 Other long term (current) drug therapy
CPT/HCPCS: 36415; 80053; 80061; 83721; 84443; 85025